=== PATIENT | female | born 1990 | race American Indian/Alaskan Native ===

== ENCOUNTER 2017-07-13 22:47 | Inpatient (IN) | payer SELFPAY ==
[2017-07-14 00:05] LABS: Basophils % (Auto) 0.4 % (0.0-1.8); Eosinophils % (Auto) 3.9 % (0.0-4.3); Hematocrit 38.3 % (30.3-42.9); Mean Corpuscular HGB Conc 34 % (30-34); Mean Corpuscular Hemoglobin 30 pg (28-32); Mean Corpuscular Volume 87 fl (79-97); Platelet Count 319 K/mm3 (140-440); Red Blood Count 4.39 M/mm3 (3.65-5.03); Red Cell Distribution Width 14.2 % (13.2-15.2)
[2017-07-14 00:38] LABS: Anion Gap 18 mmol/L; BUN/Creatinine Ratio 33; Blood Urea Nitrogen 13 mg/dL (7-17); Calcium 9.1 mg/dL (8.4-10.2); Carbon Dioxide 28 mmol/L (22-30); Chloride 98.6 mmol/L (98-107); Glucose 102 mg/dL (65-100); Potassium 3.9 mmol/L (3.6-5.0); Sodium 141 mmol/L (137-145)
[2017-07-14] MEDS ORDERED: KEPPRA 1,000 MG/NS 0.75% 100ML 0 MG/0 ML BAG IV ONE (01:10)
[2017-07-14 07:09] LABS: Bilirubin,Urine NEG (Negative); Blood,Urine NEG (Negative); Ketones,Urine NEG (Negative); Leukocyte Esterase,Urine NEG (Negative); Mucus,Urine 3+ /HPF; Nitrite,Urine NEG (Negative); Protein,Urine <15 mg/dL mg/dL (Negative); Urobilinogen,Urine < 2.0 mg/dL (<2.0)
--- NOTE | 2017-07-14 09:02 | Emergency Department Report ---
ED Chest Pain HPI - General Chief Complaint: Chest Pain Stated Complaint: CP Time Seen by Provider: 07/14/17 08:56 Source: patient Mode of arrival: Ambulatory Limitations: No Limitations - History of Present Illness Initial Comments: Patient complains of substernal chest pain which is somewhat pleuritic associated with shortness of breath for the last 3 days. Patient has not had chest pain of this nature in the past. She's had no recent travel. She denies any history of venous thromboembolism or cardiac problem. She states that her half sister may have had a heart attack but seems to have little detail on this. MD Complaint: chest pain -: Gradual, days(s) Onset: during rest Pain Location: substernal Pain Radiation: none Severity: moderate Quality: tightness Consistency: intermittent Improves With: nothing Worsens With: inspiration (pain is pleuritic) re: dyspnea. denies: nausea, vomting, diaphoresis Other Symptoms: denies: cough, fever, syncope Treatments Prior to Arrival: none Aspirin use within the Past 7 Days: (0) No - Related Data On Oral Contraceptives: No Home Medications Medication Instructions Recorded Confirmed Last Taken Atenolol/Chlorthalidone 1 tab PO Q12H 07/13/17 07/13/17 Unknown AtorvaSTATin 20 mg PO HS 07/13/17 07/13/17 Unknown Losartan Potassium 25 mg PO Q12H 07/13/17 07/13/17 Unknown metFORMIN 1,000 mg PO Q12H 07/13/17 07/13/17 Unknown Allergies Allergy/AdvReac Type Severity Reaction Status Date / Time cefaclor [From [facility]] Allergy Hives Verified 07/14/17 01:32 Penicillins Allergy Itching Verified 07/14/17 01:32 Heart Score - HEART Score History: Moderately suspicious EKG: Non-specific Age: < 45 Risk factors: 1-2 risk factors Troponin: < normal limit HEART Score: 3 - Critical Actions Critical Actions: 0-3 pts:0.9-1.7%risk of adverse cardiac event.Candidate for discharge ED Review of Systems ROS: Stated complaint: CP Other details as noted in HPI Constitutional: denies: chills, fever Eyes: denies: eye pain, eye discharge, vision change ENT: denies: ear pain, throat pain Respiratory: shortness of breath. denies: cough, wheezing Cardiovascular: chest pain. denies: palpitations Endocrine: no symptoms reported Gastrointestinal: denies: abdominal pain, nausea, diarrhea Genitourinary: denies: urgency, dysuria, discharge Musculoskeletal: denies: back pain, joint swelling, arthralgia Skin: denies: rash, lesions Neurological: denies: headache, weakness, paresthesias Psychiatric: denies: anxiety, depression Hematological/Lymphatic: denies: easy bleeding, easy bruising ED Past Medical Hx - Past Medical History Hx Hypertension: Yes Hx Diabetes: Yes Hx Headaches / Migraines: Yes Additional medical history: High cholesterol - Surgical History Hx Cholecystectomy: Yes Additional Surgical History: Tonsilectomy, Adenoidectomy, Surgical . Tubal Ligation - Social History Smoking Status: Never Smoker Substance Use Type: None - Medications Home Medications: Home Medications Medication Instructions Recorded Confirmed Last Taken Type Atenolol/Chlorthalidone 1 tab PO Q12H 07/13/17 07/13/17 Unknown History AtorvaSTATin 20 mg PO HS 07/13/17 07/13/17 Unknown History Losartan Potassium 25 mg PO Q12H 07/13/17 07/13/17 Unknown History metFORMIN 1,000 mg PO Q12H 07/13/17 07/13/17 Unknown History ED Physical Exam - General Limitations: No Limitations General appearance: alert, in no apparent distress, obese - Head Head exam: Present: atraumatic, normocephalic - Eye Eye exam: Present: normal appearance, PERRL, EOMI. Absent: scleral icterus - ENT ENT exam: Present: normal exam, mucous membranes moist - Neck Neck exam: Present: normal inspection. Absent: tenderness, meningismus - Respiratory Respiratory exam: Present: normal lung sounds bilaterally. Absent: respiratory distress - Cardiovascular Cardiovascular Exam: Present: regular rate, normal rhythm. Absent: systolic murmur, diastolic murmur, rubs, gallop - GI/Abdominal GI/Abdominal exam: Present: soft, normal bowel sounds. Absent: distended, tenderness, guarding, rebound, rigid - Extremities Exam Extremities exam: Present: normal inspection, normal capillary refill. Absent: pedal edema, joint swelling, calf tenderness - Back Exam Back exam: Present: normal inspection - Neurological Exam Neurological exam: Present: alert, oriented X3, CN II-XII intact. Absent: motor sensory deficit - Psychiatric Psychiatric exam: Present: normal affect, normal mood - Skin Skin exam: Present: warm, dry, intact, normal color. Absent: rash ED Course Vital Signs 07/13/17 07/14/17 07/14/17 23:36 02:12 06:33 Temperature 98 F 98.0 F Pulse Rate 100 H 80 Respiratory 16 Rate Blood Pressure 125/82 124/87 Blood Pressure [Left] O2 Sat by Pulse 100 100 97 Oximetry 07/14/17 07/14/17 07/14/17 06:45 06:46 07:00 Temperature 97.6 F Pulse Rate 88 91 H 82 Respiratory 17 16 18 Rate Blood Pressure 116/72 111/81 Blood Pressure 122/77 [Left] O2 Sat by Pulse 97 97 96 Oximetry 07/14/17 07/14/17 07/14/17 07:15 07:30 07:45 Temperature Pulse Rate 81 90 77 Respiratory 15 17 16 Rate Blood Pressure 115/83 109/84 108/74 Blood Pressure [Left] O2 Sat by Pulse 98 96 97 Oximetry 07/14/17 07/14/17 07/14/17 08:00 08:15 08:30 Temperature 97.5 F L Pulse Rate 73 69 66 Respiratory 17 16 14 Rate Blood Pressure 110/70 110/76 111/75 Blood Pressure [Left] O2 Sat by Pulse 97 99 100 Oximetry 07/14/17 07/14/17 07/14/17 08:45 09:00 09:15 Temperature Pulse Rate 71 81 82 Respiratory 17 15 16 Rate Blood Pressure 111/76 114/77 111/81 Blood Pressure [Left] O2 Sat by Pulse 98 95 96 Oximetry 07/14/17 07/14/17 07/14/17 09:30 09:42 09:43 Temperature 97.9 F Pulse Rate 85 86 86 Respiratory 16 12 Rate Blood Pressure 112/82 Blood Pressure 112/82 [Left] O2 Sat by Pulse 99 99 Oximetry 07/14/17 07/14/17 07/14/17 09:45 11:00 11:04 Temperature 98.0 F Pulse Rate 85 82 Respiratory 13 16 13 Rate Blood Pressure 112/77 112/77 Blood Pressure 120/84 [Left] O2 Sat by Pulse 99 98 Oximetry 07/14/17 07/14/17 07/14/17 11:15 11:30 11:45 Temperature Pulse Rate 97 H 89 91 H Respiratory 19 17 17 Rate Blood Pressure 136/76 136/76 124/86 Blood Pressure [Left] O2 Sat by Pulse 94 98 98 Oximetry 07/14/17 07/14/17 12:00 12:15 Temperature Pulse Rate 90 85 Respiratory 16 11 L Rate Blood Pressure 127/83 120/74 Blood Pressure [Left] O2 Sat by Pulse 97 97 Oximetry - Reevaluation(s) Reevaluation #1: Patient was found to have a pulmonary embolism with low clot burden on the left area see radiologist's report. She was placed on a standard heparin drip after standard bolus. She was admitted to the hospitalist service is stable condition. 07/14/17 16:24 CICI score - Cici Score Age > 65: (0) No Aspirin use within the Past 7 Days: (0) No 3 or more CAD Risk Factors: (0) No 2 or more Angina events in past 24 hrs: (0) No Known CAD with more than 50% Stenosis: (0) No Elevated Cardiac Markers: (0) No ST Deviation Greater than 0.5mm: (0) No CICI Score: 0 ED Medical Decision Making - Lab Data Result diagrams: 07/14/17 10:37 07/13/17 23:52 Laboratory Results - last 24 hr 07/13/17 07/13/17 07/13/17 23:52 23:52 23:52 WBC 8.0 RBC 4.39 Hgb 13.0 Hct 38.3 MCV 87 MCH 30 MCHC 34 RDW 14.2 Plt Count 319 Lymph % (Auto) 28.2 [place] % (Auto) 5.6 Eos % (Auto) 3.9 Baso % (Auto) 0.4 Lymph # 2.3 [place] # 0.5 Eos # 0.3 Baso # 0.0 Seg Neutrophils % 61.9 Seg Neutrophils # 5.0 Sodium 141 Potassium 3.9 Chloride 98.6 Carbon Dioxide 28 Anion Gap 18 BUN 13 Creatinine 0.4 L Estimated GFR > 60 BUN/Creatinine Ratio 33 Glucose 102 H Calcium 9.1 Troponin T < 0.010 HCG, Qual Negative Urine Color Urine Turbidity Urine pH Ur Specific [place] Urine Protein Urine Glucose (UA) Urine Ketones Urine Blood Urine Nitrite Urine Bilirubin Urine Urobilinogen Ur Leukocyte Esterase Urine WBC (Auto) Urine RBC (Auto) U Epithel Cells (Auto) Urine Mucus 07/14/17 07/14/17 07/14/17 02:17 05:34 06:46 WBC RBC Hgb Hct MCV MCH MCHC RDW Plt Count Lymph % (Auto) [place] % (Auto) Eos % (Auto) Baso % (Auto) Lymph # [place] # Eos # Baso # Seg Neutrophils % Seg Neutrophils # Sodium Potassium Chloride Carbon Dioxide Anion Gap BUN Creatinine Estimated GFR BUN/Creatinine Ratio Glucose Calcium Troponin T < 0.010 < 0.010 HCG, Qual Urine Color Yellow Urine Turbidity Clear Urine pH 5.0 Ur Specific [place] 1.030 Urine Protein <15 mg/dl Urine Glucose (UA) Neg Urine Ketones Neg Urine Blood Neg Urine Nitrite Neg Urine Bilirubin Neg Urine Urobilinogen < 2.0 Ur Leukocyte Esterase Neg Urine WBC (Auto) 2.0 Urine RBC (Auto) 4.0 U Epithel Cells (Auto) 15.0 H Urine Mucus 3+ - EKG Data -: EKG Interpreted by [place] EKG shows normal: sinus rhythm Rate: normal - EKG Data When compared to previous EKG there are: no significant change Interpretation: no acute changes - Radiology Data Radiology results: report reviewed (pulmonary embolism) Critical care attestation.: If time is entered above; I have spent that time in minutes in the direct care of this critically ill patient, excluding procedure time. ED Disposition Clinical Impression: Pulmonary embolism Qualifiers: Pulmonary embolism type: other Chronicity: acute Acute cor pulmonale presence: without acute cor pulmonale Qualified Code(s): I26.99 - Other pulmonary embolism without acute cor pulmonale Disposition: OP ADMIT IP TO THIS HOSP Is pt being admited?: Yes Does the pt Need Aspirin: Yes Condition: Stable Referrals: ALEJANDRO DAVIS MD [Primary Care Provider] - 3-5 Days Time of Disposition: 16:32
[2017-07-14] MEDS ORDERED: ASPIRIN PO ONE (09:37)
[2017-07-14] MEDS ORDERED: NACL ONE (09:42)
--- NOTE | 2017-07-14 10:29 | Cat Scan Report ---
CT CHEST WITH CONTRAST: 07/14/17 09:37:00 CLINICAL: Chest pain TECHNIQUE: PE protocol with volumetric acquisition and 1.25 mm scan reconstructions after the uneventful intravenous injection of 100 cc Omnipaque 350. Consent was obtained prior to the administration of contrast. FINDINGS: Good opacification of the pulmonary arteries and a small burden of left lower lobe subsegmental pulmonary artery thrombus identified. No central thrombus. Normal heart and aorta. Normal lungs and mediastinum. Normal thyroid, trachea and esophagus. The upper abdomen is unremarkable. The bones and soft tissues are normal. IMPRESSION: Positive study for pulmonary embolus with a small burden of thrombus. Verbal report was given to in the emergency department at 10:28 on 07/14/17. MEREDITH MENESES
[2017-07-14] MEDS ORDERED: HEPARIN 10,000 UNITS/10 ML IV ONE (10:33)
[2017-07-14] MEDS: HEPARIN/ 0.45% NACL-25,000 UNIT/500 ML 25,000 UNIT/500 ML BAG IV SCH (10:47)
[2017-07-14 11:02] LABS: Hematocrit 38.1 % (30.3-42.9); Hemoglobin 13.1 gm/dl (10.1-14.3)
[2017-07-14 11:13] LABS: INR 0.99 (0.87-1.13)
[2017-07-14 11:14] LABS: Partial Thromboplastin Time 31.4 Sec. (24.2-36.6)
--- NOTE | 2017-07-14 19:57 | History and Physical Report ---
History of Present Illness Date of examination: 07/14/17 Date of admission: 07/14/17 16:44 Chief complaint: CC:Chest pain and Sob for 1 week. History of present illness: History of Present Illness 26 y/o AAF with pmh of HtN T2DM and HLD complains of substernal chest pain which is somewhat pleuritic associated with shortness of breath for the last 7 days. Also SOB on minimal exertion for 1 week. Travelled to [place] and back [facility]. She denies any history of venous thromboembolism or cardiac problem. She states that her half sister may have had a heart attack but seems to have little detail on this.Pain is about 8/10 dull in character.No diaphoresis or palpitations.Exacerbating factor is exertion.Relieved by rest. Past Medical History Hx Hypertension: Yes Hx Diabetes: Yes Hx Headaches / Migraines: Yes Additional medical history: High cholesterol Surgical History Hx Cholecystectomy: Yes Additional Surgical History: Tonsilectomy, Adenoidectomy, Surgical . Tubal Ligation Social History Smoking Status: Never Smoker Substance Use Type: None Medications Home Medications: Home Medications Medication Instructions Recorded Confirmed Last Taken Type Atenolol/Chlorthalidone 1 tab PO Q12H 07/13/17 07/13/17 Unknown History AtorvaSTATin 20 mg PO HS 07/13/17 07/13/17 Unknown History Losartan Potassium 25 mg PO Q12H 07/13/17 07/13/17 Unknown History metFORMIN 1,000 mg PO Q12H 07/13/17 07/13/17 Unknown History Review of Systems Stated complaint: CP Other details as noted in HPI Constitutional: denies: chills, fever Eyes: denies: eye pain, eye discharge, vision change ENT: denies: ear pain, throat pain Respiratory: shortness of breath. denies: cough, wheezing Cardiovascular: chest pain. denies: palpitations Endocrine: no symptoms reported Gastrointestinal: denies: abdominal pain, nausea, diarrhea Genitourinary: denies: urgency, dysuria, discharge Musculoskeletal: denies: back pain, joint swelling, arthralgia Skin: denies: rash, lesions Neurological: denies: headache, weakness, paresthesias Psychiatric: denies: anxiety, depression Hematological/Lymphatic: denies: easy bleeding, easy bruising Medications and Allergies Allergies Allergy/AdvReac Type Severity Reaction Status Date / Time cefaclor [[facility]] Allergy Hives Verified 07/14/17 01:32 Penicillins Allergy Itching Verified 07/14/17 01:32 Home Medications Medication Instructions Recorded Confirmed Last Taken Type Atenolol/Chlorthalidone 1 tab PO Q12H 07/13/17 07/13/17 Unknown History AtorvaSTATin 20 mg PO HS 07/13/17 07/13/17 Unknown History Losartan Potassium 25 mg PO Q12H 07/13/17 07/13/17 Unknown History metFORMIN 1,000 mg PO Q12H 07/13/17 07/13/17 Unknown History Active Meds: Active Medications Heparin Sodium/Sodium Chloride (Heparin/ 0.45% Nacl-25,000 Unit/500 Ml) 25,000 unit in 500 mls @ 27 mls/hr IV TITR [place]; 1,350 UNITS/HR PRN Reason: Protocol Last Titration: 07/14/17 17:33 Dose: 1,450 units/hr, 29 mls/hr Exam - Physical Exam Narrative exam: Lying comfortably - Constitutional Vitals: Temp Pulse Resp BP Pulse Ox 98.0 F 92 H 17 110/75 98 07/14/17 15:00 07/14/17 16:45 07/14/17 16:45 07/14/17 16:45 07/14/17 16:45 General appearance: Present: mild distress, well-nourished - EENT Eyes: Present: PERRL ENT: hearing intact, clear oral mucosa - Neck Neck: Present: supple, normal ROM - Respiratory Respiratory effort: normal Respiratory: bilateral: CTA - Cardiovascular Heart rate: 98 Rhythm: regular Heart Sounds: Present: S1 & S2. Absent: rub, click - Extremities Extremities: no ischemia, pulses intact, pulses symmetrical, No edema Peripheral Pulses: within normal limits - Abdominal General gastrointestinal: Present: soft, non-tender, non-distended, normal bowel sounds Female genitourinary: Present: normal - Integumentary Integumentary: Present: clear, warm, dry - Musculoskeletal Musculoskeletal: gait normal, strength equal bilaterally - Psychiatric Psychiatric: appropriate mood/affect, intact judgment & insight - Neurologic Neurologic: CNII-XII intact, moves all extremities - Allied Health Allied health notes reviewed: nursing, case management Results - Labs CBC & Chem 7: 07/15/17 04:57 07/13/17 23:52 Labs: Laboratory Last Values WBC 8.0 K/mm3 (4.5-11.0) 07/13/17 23:52 RBC 4.39 M/mm3 (3.65-5.03) 07/13/17 23:52 Hgb 13.1 gm/dl (10.1-14.3) 07/14/17 10:37 Hct 38.1 % (30.3-42.9) 07/14/17 10:37 MCV 87 fl (79-97) 07/13/17 23:52 MCH 30 pg (28-32) 07/13/17 23:52 MCHC 34 % (30-34) 07/13/17 23:52 RDW 14.2 % (13.2-15.2) 07/13/17 23:52 Plt Count 295 K/mm3 (140-440) 07/14/17 10:37 Lymph % (Auto) 28.2 % (13.4-35.0) 07/13/17 23:52 [place] % (Auto) 5.6 % (0.0-7.3) 07/13/17 23:52 Eos % (Auto) 3.9 % (0.0-4.3) 07/13/17 23:52 Baso % (Auto) 0.4 % (0.0-1.8) 07/13/17 23:52 Lymph # 2.3 K/mm3 (1.2-5.4) 07/13/17 23:52 [place] # 0.5 K/mm3 (0.0-0.8) 07/13/17 23:52 Eos # 0.3 K/mm3 (0.0-0.4) 07/13/17 23:52 Baso # 0.0 K/mm3 (0.0-0.1) 07/13/17 23:52 Seg Neutrophils % 61.9 % (40.0-70.0) 07/13/17 23:52 Seg Neutrophils # 5.0 K/mm3 (1.8-7.7) 07/13/17 23:52 PT 13.6 Sec. (12.2-14.9) 07/14/17 10:37 INR 0.99 (0.87-1.13) 07/14/17 10:37 APTT 31.4 Sec. (24.2-36.6) 07/14/17 10:37 Heparin Anti-Xa Level 0.27 U.I./ml (0.3-0.7) L 07/14/17 16:25 Sodium 141 mmol/L (137-145) 07/13/17 23:52 Potassium 3.9 mmol/L (3.6-5.0) 07/13/17 23:52 Chloride 98.6 mmol/L (98-107) 07/13/17 23:52 Carbon Dioxide 28 mmol/L (22-30) 07/13/17 23:52 Anion Gap 18 mmol/L 07/13/17 23:52 BUN 13 mg/dL (7-17) 07/13/17 23:52 Creatinine 0.4 mg/dL (0.7-1.2) L 07/13/17 23:52 Estimated GFR > 60 ml/min 07/13/17 23:52 BUN/Creatinine Ratio 33 % 07/13/17 23:52 Glucose 102 mg/dL (65-100) H 07/13/17 23:52 POC Glucose 114 (70-105) H 07/14/17 16:50 Calcium 9.1 mg/dL (8.4-10.2) 07/13/17 23:52 Troponin T < 0.010 ng/mL (0.00-0.029) 07/14/17 05:34 HCG, Qual Negative (Negative) 07/13/17 23:52 Urine Color Yellow (Yellow) 07/14/17 06:46 Urine Turbidity Clear (Clear) 07/14/17 06:46 Urine pH 5.0 (5.0-7.0) 07/14/17 06:46 Ur Specific [place] 1.030 (1.003-1.030) 07/14/17 06:46 Urine Protein <15 mg/dl mg/dL (Negative) 07/14/17 06:46 Urine Glucose (UA) Neg mg/dL (Negative) 07/14/17 06:46 Urine Ketones Neg mg/dL (Negative) 07/14/17 06:46 Urine Blood Neg (Negative) 07/14/17 06:46 Urine Nitrite Neg (Negative) 07/14/17 06:46 Urine Bilirubin Neg (Negative) 07/14/17 06:46 Urine Urobilinogen < 2.0 mg/dL (<2.0) 07/14/17 06:46 Ur Leukocyte Esterase Neg (Negative) 07/14/17 06:46 Urine WBC (Auto) 2.0 /HPF (0.0-6.0) 07/14/17 06:46 Urine RBC (Auto) 4.0 /HPF (0.0-6.0) 07/14/17 06:46 U Epithel Cells (Auto) 15.0 /HPF (0-13.0) H 07/14/17 06:46 Urine Mucus 3+ /HPF 07/14/17 06:46 - Imaging and Cardiology EKG: report reviewed Chest x-ray: report reviewed CT scan - chest: report reviewed (PE present) Assessment and Plan Advance Directives: Yes (Full code) VTE prophylaxis?: Chemical Plan of care discussed with patient/family: Yes - Patient Problems (1) Acute pulmonary embolism Current Visit: Yes Status: Acute Qualifiers: Pulmonary embolism type: other Acute cor pulmonale presence: without acute cor pulmonale Qualified Code(s): I26.99 - Other pulmonary embolism without acute cor pulmonale Plan to address problem: No need for IR/EKOS(Catheter assisted thrombolysis treatment) Patient initiated on IV Heparin drip and Eliquis.Patient maybe discharged on Eliquis .Free coupons for Eliquis available.Alternate treatment is coumadin..Will discuss with Team 1. (2) Chest pain in adult Current Visit: Yes Status: Acute Plan to address problem: Serial cardiac enzymes and Lexiscan ordered (3) HTN (hypertension) Current Visit: Yes Status: Chronic Qualifiers: Hypertension type: essential hypertension Qualified Code(s): I10 - Essential (primary) hypertension Plan to address problem: Cont antihypertensives (4) HLD (hyperlipidemia) Current Visit: Yes Status: Chronic Qualifiers: Hyperlipidemia type: mixed hyperlipidemia Qualified Code(s): E78.2 - Mixed hyperlipidemia Plan to address problem: Cont statins (5) T2DM (type 2 diabetes mellitus) Current Visit: Yes Status: Chronic Qualifiers: Diabetes mellitus complication status: without complication Diabetes mellitus halfway insulin use: without halfway use Qualified Code(s): E11.9 - Type 2 diabetes mellitus without complications Plan to address problem: Cont Metformin and coverage (6) DVT prophylaxis Current Visit: Yes Status: Acute Plan to address problem: On Iv Heparin
[2017-07-14] MEDS ORDERED: CHLORTHALIDONE PO SCH (20:00)
[2017-07-14] MEDS ORDERED: NON-FORMULARY (Losartan Potassium 100 MG) PO SCH (20:00)
[2017-07-14] MEDS ORDERED: ATENOLOL PO SCH (20:00)
[2017-07-14] MEDS ORDERED: NON-FORMULARY (Metformin 1,000 MG) PO SCH (20:00)
[2017-07-14] MEDS ORDERED: ZOFRAN IV PRN (21:04)
[2017-07-14] MEDS ORDERED: TYLENOL PO PRN (21:04)
[2017-07-14] MEDS ORDERED: AMBIEN PO PRN (21:04)
[2017-07-14] MEDS ORDERED: MILK OF MAGNESIA PO PRN (21:04)
[2017-07-14] MEDS ORDERED: MORPHINE IV PRN (21:04)
[2017-07-14] MEDS ORDERED: PERCOCET 5/325 PO PRN (21:04)
[2017-07-14] MEDS ORDERED: DULCOLAX PR PRN (21:04)
[2017-07-14] MEDS ORDERED: NON-FORMULARY (Atorvastatin 20 MG) PO SCH (22:00)
[2017-07-14] MEDS: PEPCID IV SCH (22:02)
[2017-07-14] MEDS: ELIQUIS PO SCH (22:03)
[2017-07-14] MEDS: COZAAR PO SCH (22:04)
[2017-07-14] MEDS: GLUCOPHAGE PO SCH (22:05)
[2017-07-14] MEDS: TENORMIN PO SCH (22:05)
[2017-07-14] MEDS: THALITONE PO SCH (22:05)
[2017-07-14] MEDS: NOVOLOG SUB-Q SCH (22:05)
[2017-07-14] MEDS: NACL 0.9% 1000 ML 1,000 ML IV SCH (23:59)
[2017-07-15 05:28] LABS: Basophils % (Auto) 0.9 % (0.0-1.8); Eosinophils % (Auto) 3.3 % (0.0-4.3); Hematocrit 37.3 % (30.3-42.9); Hemoglobin 12.8 gm/dl (10.1-14.3); Mean Corpuscular HGB Conc 34 % (30-34); Mean Corpuscular Hemoglobin 31 pg (28-32); Mean Corpuscular Volume 89 fl (79-97); Platelet Count 293 K/mm3 (140-440); Red Cell Distribution Width 14.2 % (13.2-15.2); White Blood Count 6.6 K/mm3 (4.5-11.0)
[2017-07-15 06:49] LABS: Alanine Aminotransferase 12 units/L (7-56); Albumin 3.6 g/dL (3.9-5); Albumin/Globulin Ratio 1.2 %; Alkaline Phosphatase 43 units/L (35-129); BUN/Creatinine Ratio 35; Blood Urea Nitrogen 14 mg/dL (7-17); Calcium 8.8 mg/dL (8.4-10.2); Carbon Dioxide 24 mmol/L (22-30); Glucose 74 mg/dL (65-100); Total Protein 6.7 g/dL (6.3-8.2)
[2017-07-15 06:50] LABS: Anion Gap 21 mmol/L; Chloride 99.9 mmol/L (98-107); Potassium 3.8 mmol/L (3.6-5.0); Sodium 141 mmol/L (137-145)
[2017-07-15] MEDS ORDERED: LEXISCAN IV ONE ×2 (08:14→08:39)
[2017-07-15] MEDS: NOVOLOG SUB-Q SCH ×4 (09:29→21:52)
[2017-07-15] MEDS: GLUCOPHAGE PO SCH ×2 (09:30→18:35)
--- NOTE | 2017-07-15 11:30 | Progress Note ---
Assessment and Plan (1) Acute pulmonary embolism No need for IR/EKOS(Catheter assisted thrombolysis treatment) Patient initiated on IV Heparin drip and Eliquis. Patient maybe discharged on Eliquis. Free coupons for Eliquis available. Alternate treatment is coumadin. (2) Chest pain in adult Current Visit: Yes Status: Acute. Likely from Pul infaction given pt's age of 26 and h/o PE Plan to address problem: Serial cardiac enzymes and Lexiscan ordered (3) HTN (hypertension) Cont antihypertensives (4) HLD (hyperlipidemia) Cont statins (5) T2DM (type 2 diabetes mellitus) Plan to address problem: Cont Metformin and SSIvcoverage (6)Possible PID Pt had lower abdominal pain and vaginal discharge. Commence pt on Flagyl, Levaquin. Consulted Gyne for pelvis an cervical culture (7) DVT prophylaxis Current Visit: Yes Status: Acute Plan to address problem: On Iv Heparin Subjective Date of service: 07/15/17 Principal diagnosis: Acute PE, chest pain, Interval history: Occasional shortness of breath. Had vaginal discharged and lower abdominal pain. No fever Objective - Constitutional Vitals: Vital Signs - 12hr 07/14/17 07/15/17 07/15/17 23:37 04:54 07:41 Temperature 98.2 F 98.3 F 97.7 F Pulse Rate 83 90 77 Respiratory 20 20 18 Rate Blood Pressure 115/82 108/67 120/86 Blood Pressure [Left] O2 Sat by Pulse 95 96 100 Oximetry 07/15/17 08:58 Temperature Pulse Rate 77 Respiratory 16 Rate Blood Pressure Blood Pressure 118/85 [Left] O2 Sat by Pulse 100 Oximetry General appearance: Present: no acute distress, well-nourished - EENT Eyes: PERRL, EOM intact - Neck Neck: supple, normal ROM - Respiratory Respiratory effort: normal Respiratory: bilateral: CTA - Cardiovascular Rhythm: regular Heart Sounds: Present: S1 & S2. Absent: gallop, rub Extremities: pulses intact, No edema, normal color, Full ROM - Gastrointestinal General gastrointestinal: Present: soft, non-tender, non-distended, normal bowel sounds - Integumentary Integumentary: clear, warm, dry - Musculoskeletal Musculoskeletal: 1, strength equal bilaterally - Neurologic Neurologic: moves all extremities - Psychiatric Psychiatric: appropriate mood/affect, intact judgment & insight, memory intact - Labs CBC & Chem 7: 07/15/17 04:57 07/15/17 04:57 Labs: Abnormal lab results 07/14/17 07/14/17 07/14/17 Range/Units 16:25 16:50 21:53 Lymph % (Auto) (13.4-35.0) % Heparin Anti-Xa Level 0.27 L (0.3-0.7) U.I./ml Creatinine (0.7-1.2) mg/dL POC Glucose 114 H 106 H (70-105) Albumin (3.9-5) g/dL 07/14/17 07/15/17 07/15/17 Range/Units 22:45 04:57 04:57 Lymph % (Auto) 36.8 H (13.4-35.0) % Heparin Anti-Xa Level > 2.00 H (0.3-0.7) U.I./ml Creatinine 0.4 L (0.7-1.2) mg/dL POC Glucose (70-105) Albumin 3.6 L (3.9-5) g/dL 07/15/17 Range/Units 08:39 Lymph % (Auto) (13.4-35.0) % Heparin Anti-Xa Level 1.70 H (0.3-0.7) U.I./ml Creatinine (0.7-1.2) mg/dL POC Glucose (70-105) Albumin (3.9-5) g/dL
[2017-07-15] MEDS ORDERED: UNASYN/NS 3 GM/100 ML 3 GM/100 ML BAG IV SCH (13:00)
[2017-07-15] MEDS: NACL 0.9% 1000 ML 1,000 ML IV SCH (13:08)
[2017-07-15] MEDS: HEPARIN/ 0.45% NACL-25,000 UNIT/500 ML 25,000 UNIT/500 ML BAG IV SCH (13:09)
[2017-07-15] MEDS: PEPCID IV SCH ×2 (13:19→21:51)
[2017-07-15] MEDS: ELIQUIS PO SCH ×2 (13:20→21:52)
[2017-07-15] MEDS: COZAAR PO SCH ×2 (13:55→21:53)
[2017-07-15] MEDS: THALITONE PO SCH (13:56)
[2017-07-15] MEDS ORDERED: LEVAQUIN 750MG/150ML 750 MG/150 ML BAG IV SCH (14:00)
[2017-07-15] MEDS ORDERED: TENORMIN PO SCH (15:15)
[2017-07-15] MEDS: TENORMIN PO SCH ×2 (15:16→21:54)
[2017-07-15] MEDS: FLAGYL 500 MG/100 ML 500 MG/100 ML BAG IV SCH ×2 (15:56→21:51)
[2017-07-15] MEDS ORDERED: TENORMIN PO ONE (17:39)
[2017-07-15] MEDS: LEVAQUIN 750MG/150ML 750 MG/150 ML BAG IV SCH (19:33)
--- NOTE | 2017-07-15 19:40 | Ultrasound Report ---
FINAL REPORT PROCEDURE: US TRANSVAGINAL and transabdominal TECHNIQUE: Real-time transabdominal sonography in multiple planes of the pelvis was performed. The pelvic structures were not optimally visualized. Transvaginal sonography was then performed to better evaluate the structures and/or abnormalities described below with image documentation. Grayscale, color flow Doppler imaging and velocity spectral waveform analysis of the ovaries was employed (duplex imaging). CPT 04696, 86848, and 25[address] HISTORY: pelvic pain COMPARISON: No prior studies are available for comparison. FINDINGS: UTERUS Size: 11.4 x 3.7 x 5.3 cm. Endometrial thickness: 8 mm. Orientation: anteverted. Cervix: Normal. Fibroids/masses: None. RIGHT Ovary: 4.1 x 3.0 x 2.6 cm. Appearance: 3.3 centimeter cyst is present. Doppler images: Normal spectral waveforms and color flow. The systolic and diastolic velocities are within normal limits. LEFT Ovary: 2.4 x 1.9 x 1.1 cm. Appearance: Normal. Doppler images: Normal spectral waveforms and color flow. The systolic and diastolic velocities are within normal limits. Pelvic fluid: None. Other: None. IMPRESSION: 3.3 centimeter right ovarian cyst is present
--- NOTE | 2017-07-15 19:40 | Ultrasound Report ---
FINAL REPORT PROCEDURE: US TRANSVAGINAL and transabdominal TECHNIQUE: Real-time transabdominal sonography in multiple planes of the pelvis was performed. The pelvic structures were not optimally visualized. Transvaginal sonography was then performed to better evaluate the structures and/or abnormalities described below with image documentation. Grayscale, color flow Doppler imaging and velocity spectral waveform analysis of the ovaries was employed (duplex imaging). CPT 19669, 34106, and 39439 HISTORY: pelvic pain COMPARISON: No prior studies are available for comparison. FINDINGS: UTERUS Size: 11.4 x 3.7 x 5.3 cm. Endometrial thickness: 8 mm. Orientation: anteverted. Cervix: Normal. Fibroids/masses: None. RIGHT Ovary: 4.1 x 3.0 x 2.6 cm. Appearance: 3.3 centimeter cyst is present. Doppler images: Normal spectral waveforms and color flow. The systolic and diastolic velocities are within normal limits. LEFT Ovary: 2.4 x 1.9 x 1.1 cm. Appearance: Normal. Doppler images: Normal spectral waveforms and color flow. The systolic and diastolic velocities are within normal limits. Pelvic fluid: None. Other: None. IMPRESSION: 3.3 centimeter right ovarian cyst is present PROCEDURE: TECHNIQUE: HISTORY: COMPARISON: FINDINGS: IMPRESSION:
[2017-07-16] MEDS: NACL 0.9% 1000 ML 1,000 ML IV SCH (04:35)
[2017-07-16] MEDS: FLAGYL 500 MG/100 ML 500 MG/100 ML BAG IV SCH ×4 (05:10→22:12)
[2017-07-16 07:12] LABS: Hematocrit 36.6 % (30.3-42.9); Hemoglobin 12.6 gm/dl (10.1-14.3)
[2017-07-16] MEDS: GLUCOPHAGE PO SCH ×2 (08:02→19:11)
[2017-07-16] MEDS: COZAAR PO SCH ×2 (08:30→22:14)
[2017-07-16] MEDS: NOVOLOG SUB-Q SCH ×4 (09:02→23:36)
[2017-07-16] MEDS: ELIQUIS PO SCH ×2 (09:02→22:13)
[2017-07-16] MEDS: TENORMIN PO SCH ×2 (09:03→22:15)
--- NOTE | 2017-07-16 09:36 | Consultation ---
History of Present Illness Consult date: 07/16/17 Requesting physician: VIN GUERIN Reason for consult: other (Patient wanted exam for pelvic pain and vaginal discharge, he mentioned r/o PID) History of present illness: 26 yo admitted with PE and SOB I told Dr Guerin that this problem does not need a hospital consult and can be safely evaluated in our office once the patient is discharged on anticoagulation. She does not have PID based on normal WBC and afebrile. Gonorrhea and Chlamydia cultures can be ordered on a urine sample and RPR, HIV and HepB are blood tests that may be ordered. Please give patient our office number to make an appointment after discharge. Medications and Allergies Allergies Allergy/AdvReac Type Severity Reaction Status Date / Time cefaclor [From [facility]] Allergy Hives Verified 07/14/17 01:32 Penicillins Allergy Itching Verified 07/14/17 01:32 Home Medications Medication Instructions Recorded Confirmed Last Taken Type Atenolol/Chlorthalidone 0.5 tab PO Q12H 07/13/17 07/15/17 Unknown History AtorvaSTATin 20 mg PO HS 07/13/17 07/13/17 Unknown History Losartan Potassium 25 mg PO Q12H 07/13/17 07/13/17 Unknown History metFORMIN 1,000 mg PO Q12H 07/13/17 07/13/17 Unknown History Active Meds: Active Medications Acetaminophen (Tylenol) 650 mg PO Q4H PRN PRN Reason: Pain MILD(1-3)/Fever >100.5/[place] Apixaban (Eliquis) 10 mg PO Q12HR [place] PRN Reason: Protocol Stop: 07/21/17 23:59 Last Admin: 07/15/17 21:52 Dose: 10 mg Atenolol (Tenormin) 25 mg PO BID [facility] Last Admin: 07/15/17 21:54 Dose: 25 mg Atorvastatin Calcium (Lipitor) 20 mg PO QHS [facility] Last Admin: 07/15/17 21:52 Dose: 20 mg Bisacodyl (Dulcolax) 10 mg MN QDAY PRN PRN Reason: Constipation unrelieved by MOM Famotidine (Pepcid) 20 mg IV BID [facility] Last Admin: 07/15/17 21:51 Dose: 20 mg Heparin Sodium/Sodium Chloride (Heparin/ 0.45% Nacl-25,000 Unit/500 Ml) 25,000 unit in 500 mls @ 27 mls/hr IV TITR [place]; 1,350 UNITS/HR PRN Reason: Protocol Last Titration: 07/16/17 09:01 Dose: 650 units/hr, 13 mls/hr Sodium Chloride (Nacl 0.9% 1000 Ml) 1,000 mls @ 75 mls/hr IV DIRECT [facility] Last Admin: 07/16/17 04:35 Dose: 75 mls/hr Metronidazole (Flagyl 500 Mg/100 Ml) 500 mg in 100 mls @ 100 mls/hr IV Q8H [facility] Last Admin: 07/16/17 05:10 Dose: 100 mls/hr Levofloxacin/Dextrose (Levaquin 750mg/150ml) 750 mg in 150 mls @ 100 mls/hr IV Q24H [facility] PRN Reason: Protocol Last Admin: 07/15/17 19:33 Dose: 100 mls/hr Insulin Aspart (Novolog) 0 units SUB-Q ACHS [facility] PRN Reason: Protocol Last Admin: 07/15/17 21:52 Dose: Not Given Losartan Potassium (Cozaar) 25 mg PO BID [facility] Last Admin: 07/15/17 21:53 Dose: Not Given Magnesium Hydroxide (Milk Of Magnesia) 30 ml PO Q4H PRN PRN Reason: Constipation Metformin HCl (Glucophage) 1,000 mg PO BIDDIAB [facility] Last Admin: 07/15/17 18:35 Dose: Not Given Morphine Sulfate (Morphine) 2 mg IV Q4H PRN PRN Reason: Pain, Moderate (4-6) Ondansetron HCl (Zofran) 4 mg IV Q8H PRN PRN Reason: N/V unrelieved by Reglan Oxycodone/Acetaminophen (Percocet 5/325) 1 tab PO Q6H PRN PRN Reason: Pain, Moderate (4-6) Zolpidem Tartrate (Ambien) 5 mg PO QHS PRN PRN Reason: Insomnia - Vital Signs Vital signs: Vital Signs Temp Pulse BP Pulse Ox 98 F 100 H 125/82 100 07/13/17 23:36 07/13/17 23:36 07/13/17 23:36 07/13/17 23:36 Temp Pulse Resp BP Pulse Ox 98.3 F 74 18 107/69 99 07/16/17 06:05 07/16/17 06:05 07/16/17 06:05 07/16/17 06:05 07/16/17 06:05 Results Result Diagrams: 07/16/17 06:50 07/15/17 04:57 Abnormal lab results 07/15/17 07/15/17 07/16/17 Range/Units 15:25 18:36 06:51 Heparin Anti-Xa Level 1.93 H > 2.00 H (0.3-0.7) U.I./ml POC Glucose 111 H (70-105) All other labs normal. Ultrasound: report reviewed (report not read until 07/16/2017 and is completely normal except uterine length is somewhat increased) Assessment and Plan - Patient Problems (1) Acute pulmonary embolism Current Visit: Yes Status: Acute Qualifiers: Pulmonary embolism type: other Acute cor pulmonale presence: without acute cor pulmonale Qualified Code(s): I26.99 - Other pulmonary embolism without acute cor pulmonale Plan to address problem: handle by primary team. otherwise: Gonorrhea and Chlamydia cultures can be ordered on a urine sample and RPR, HIV and HepB are blood tests that may be ordered. (2) Chest pain in adult Current Visit: Yes Status: Acute Plan to address problem: handle by primary team
[2017-07-16] MEDS: PEPCID IV SCH ×2 (11:04→22:13)
[2017-07-16] MEDS ORDERED: LEXISCAN IV ONE (11:21)
[2017-07-16] MEDS ORDERED: LEXISCAN IV NR (11:25)
[2017-07-16] MEDS: LEVAQUIN 750MG/150ML 750 MG/150 ML BAG IV SCH (19:11)
--- NOTE | 2017-07-16 20:32 | Progress Note ---
Assessment and Plan (1) Acute pulmonary embolism No need for IR/EKOS(Catheter assisted thrombolysis treatment) Patient initiated on IV Heparin drip and Eliquis. Patient maybe discharged on Eliquis. Free coupons for Eliquis available. Alternate treatment is coumadin. (2) Chest pain in adult Current Visit: Yes Status: Acute. Likely from Pul infarction given pt's age of 26 and h/o PE Plan to address problem: Serial cardiac enzymes (3) HTN (hypertension) Cont antihypertensives (4) HLD (hyperlipidemia) Cont statins (5) T2DM (type 2 diabetes mellitus) Plan to address problem: Cont Metformin and SSI coverage (6)Possible PID Pt had lower abdominal pain and vaginal discharge. Gyne consult noted. Still believe that an inpt Gyne consult was indicated in a pt who has has lower abdominal pain and vaginal discharged and had repeated requested pelvic exam despite normal wbc. Besides pt's satisfaction, a Cervical culture may still be indicated unless the expert thinks otherwise. will advise pt to f/ u on out pt if sx perisist. continue on Flagyl, Levaquin. (7) DVT prophylaxis Current Visit: Yes Status: Acute Plan to address problem: On Iv Heparin Subjective Date of service: 07/16/17 Principal diagnosis: Acute PE, chest pain, Interval history: Occasional shortness of breath. vaginal discharged and lower abdominal pain imporved. No fever Objective - Constitutional Vitals: Vital Signs - 12hr 07/16/17 07/16/17 16:44 19:53 Temperature 98.3 F Pulse Rate 95 H Respiratory 18 Rate Blood Pressure 128/88 114/68 O2 Sat by Pulse 97 Oximetry General appearance: Present: no acute distress, well-nourished - EENT Eyes: PERRL, EOM intact Ears: bilateral: normal - Neck Neck: supple, normal ROM - Respiratory Respiratory effort: normal Respiratory: bilateral: CTA - Cardiovascular Rhythm: regular Heart Sounds: Present: S1 & S2. Absent: gallop, rub Extremities: pulses intact, No edema, normal color, Full ROM - Gastrointestinal General gastrointestinal: Present: soft, non-tender, non-distended, normal bowel sounds - Integumentary Integumentary: clear, warm, dry - Musculoskeletal Musculoskeletal: 1, strength equal bilaterally - Neurologic Neurologic: moves all extremities - Psychiatric Psychiatric: memory intact, appropriate mood/affect, intact judgment & insight - Labs CBC & Chem 7: 12/11/17 06:50 07/15/17 04:57 Labs: Abnormal lab results 07/16/17 07/16/17 Range/Units 06:51 16:51 Heparin Anti-Xa Level > 2.00 H (0.3-0.7) U.I./ml POC Glucose 114 H (70-105)
[2017-07-17] MEDS: NACL 0.9% 1000 ML 1,000 ML IV SCH (01:50)
--- NOTE | 2017-07-17 02:33 | Treadmill Report ---
REFERRING PHYSICIAN: Dr. Lianne Mccarthy. DESCRIPTION OF PROCEDURE: The patient received 10 mCi of technetium 99m Myoview intravenously under resting conditions. Resting myocardial perfusion scan was done. Subsequently, the patient underwent Lexiscan stress test as per the protocol. During Lexiscan stress test, the patient received 28 mCi of technetium 99m Myoview intravenously. After 30-60 minutes, post stress images were done. Computerized reconstruction images were performed for analysis. The post-stress images revealed uniform distribution of the radiopharmaceutical in the left ventricular myocardium. The post-stress images revealed uniform distribution of the radiopharmaceutical in the left ventricular myocardium. Gated study did not reveal any wall motion abnormality. The left ventricular ejection fraction was normal and was calculated to be 65%. The resting images were normal. CONCLUSIONS: 1. No perfusion abnormality of the left ventricular myocardium was demonstrated in the resting as well as stress images obtained after the patient underwent Lexiscan stress test. 2. No wall motion abnormality. 3. Normal left ventricular ejection fraction of 65%. JOB# [id number] [facility]
[2017-07-17] MEDS: FLAGYL 500 MG/100 ML 500 MG/100 ML BAG IV SCH (06:22)
[2017-07-17] MEDS: NOVOLOG SUB-Q SCH (07:48)
[2017-07-17] MEDS: GLUCOPHAGE PO SCH (08:58)
[2017-07-17] MEDS: ELIQUIS PO SCH (08:59)
[2017-07-17] MEDS: COZAAR PO SCH (08:59)
[2017-07-17] MEDS: TENORMIN PO SCH (08:59)
[2017-07-17 09:00] VITALS: BP 128/96
[2017-07-17] MEDS: PEPCID IV SCH (09:00)
--- NOTE | 2017-07-17 10:25 | Discharge Summary ---
Providers - Providers Date of Admission: 07/14/17 16:44 Attending physician: ALFRED TRACY MD 07/15/17 11:38 Consult to Physician [CONS] Routine Consulting Provider: ASHLEY URIBE Reason For Exam: possible PID Place consult to:: Dr. Uribe Notified:: Adelia VALENTIN Phone number called:: Was contact made?: Yes If yes, spoke with:: [facility] service Time called:: 12:07 Primary care physician: ALEJANDRO DAVIS Hospitalization Reason for admission: Pulmonary embolisim Condition: Stable Hospital course: 26 y/o AAF with pmh of HtN T2DM and HLD complains of substernal chest pain which is somewhat pleuritic associated with shortness of breath for the last 7 days. Also SOB on minimal exertion for 1 week. Travelled to [place] and back around [facility]. She denies any history of venous thromboembolism or cardiac problem. She states that her half sister may have had a heart attack but seems to have little detail on this.Pain is about 8/10 dull in character.No diaphoresis or palpitations.Exacerbating factor is exertion.Relieved by rest. she was noted to have Pulmonary embolism but no dvt. she was started on heparin drip, she denied prior epsiode and also no use of OCP drugs. she was seen by BRICK POINTER for possible PID with recommendation to follow outpatient and G/C cultures done which will be follow up outaptient. Also patient was started on abx, education about side effect and risk of anticoagulation was discussed in detail and she verbalized understanding. she was clinically stable on discharge and discharged on Eliquis. (1) Acute pulmonary embolism (2) Chest pain in adult SECONDARY TO PE (3) HTN (hypertension) (4) HLD (hyperlipidemia) (5) T2DM (type 2 diabetes mellitus) (6)PID Disposition: - TO HOME OR SELFCARE Time spent for discharge: 35 MINS Core Measure Documentation - Palliative Care Palliative Care/ Comfort Measures: Not Applicable - Core Measures Any of the following diagnoses?: DVT/PE - VTE Discharge Requirements Deep Vein Thrombosis/Pulmonary Embolism Present on Admission: Yes Has pt received <5 days of overlap therapy or INR<2.0: Yes (criteria for overlap therapy at discharge: on overlap therapy for less than 5 days or INR<2.0 ) Anticoagulant overlap therapy prescribed at discharge: Yes Exam - Physical Exam Narrative exam: General appearance: Present: no acute distress, well-nourished - EENT Eyes: PERRL, EOM intact - Neck Neck: supple, normal ROM - Respiratory Respiratory effort: normal Respiratory: bilateral: CTA - Cardiovascular Rhythm: regular Heart Sounds: Present: S1 & S2. Absent: gallop, rub Extremities: pulses intact, No edema, normal color, Full ROM - Gastrointestinal General gastrointestinal: Present: soft, non-tender, non-distended, normal bowel sounds - Integumentary Integumentary: clear, warm, dry - Musculoskeletal Musculoskeletal: 1, strength equal bilaterally - Neurologic Neurologic: moves all extremities - Psychiatric Psychiatric: appropriate mood/affect, intact judgment & insight, memory intact - Constitutional Vitals: Temp Pulse Resp BP Pulse Ox 97.9 F 82 20 128/96 98 07/17/17 08:51 07/17/17 08:59 07/17/17 08:51 07/17/17 08:59 07/17/17 08:51 Plan Activity: advance as tolerated, fall precautions Diet: regular Special Instructions: record daily BP diary, smoking cessation Follow up with: ALEJANDRO DAVIS MD [Primary Care Provider] - 3-5 Days ASHLEY URIBE MD [Staff Physician] - 7 Days Prescriptions: Apixaban [Eliquis] 10 mg PO Q12HR #14 tablet Apixaban [Eliquis] 5 mg PO BID 30 Days tablet Levofloxacin [Levaquin TAB] 500 mg PO QDAY #14 tablet metroNIDAZOLE [Flagyl] 500 mg PO Q12HR 14 Days tab oxyCODONE /ACETAMINOPHEN [Percocet 5/325 mg] 1 tab PO Q6H PRN #14 tablet PRN Reason: Pain, Moderate (4-6)
== END 2017-07-17 13:50 | disposition home or self-care (01) | DRG 176 ==
LOC: ED 22:47 → 4A 07-14 16:44
PROVIDERS: ADMIT Internal Medicine; ATTEND Internal Medicine
DX: I26.99 Other pulmonary embolism without acute cor pulmonale (principal); I10 Essential (primary) hypertension; E78.5 Hyperlipidemia, unspecified; E11.9 Type 2 diabetes mellitus without complications; G43.909 Migraine, unspecified, not intractable, without status migrainosus; N73.9 Female pelvic inflammatory disease, unspecified; Z88.0 Allergy status to penicillin; Z98.51 Tubal ligation status
CPT/HCPCS: 36415; 71275; 76830; 76856; 78452; 80048; 80053; 81001; 82962; 84484; 84703; 85014; 85018; 85025; 85049; 85520; 85610; 85730; 87086; 93005; 93010; 93017; 96374; A9270-GY; A9502; J0295; J1644; J1953; J1956; J2785; J7030; Q9967

== ENCOUNTER 2017-07-28 00:28 | Emergency (ER) | payer BC, OTHER ==
[2017-07-28 01:18] LABS: Basophils % (Auto) 0.4 % (0.0-1.8); Eosinophils # (Auto) 0.2 K/mm3 (0.0-0.4); Eosinophils % (Auto) 3.8 % (0.0-4.3); Hematocrit 37.8 % (30.3-42.9); Hemoglobin 12.7 gm/dl (10.1-14.3); Lymphocytes # (Auto) 1.9 K/mm3 (1.2-5.4); Lymphocytes % (Auto) 31.4 % (13.4-35.0); Mean Corpuscular HGB Conc 34 % (30-34); Mean Corpuscular Hemoglobin 30 pg (28-32); Mean Corpuscular Volume 88 fl (79-97); Monocytes # (Auto) 0.5 K/mm3 (0.0-0.8); Monocytes % (Auto) 7.4 % (0.0-7.3); Platelet Count 328 K/mm3 (140-440); Red Blood Count 4.28 M/mm3 (3.65-5.03); Red Cell Distribution Width 14.7 % (13.2-15.2)
[2017-07-28 01:42] LABS: BUN/Creatinine Ratio 38; Blood Urea Nitrogen 19 mg/dL (7-17); Calcium 9.2 mg/dL (8.4-10.2); Hemolysis Index 6
[2017-07-28 02:04] LABS: HCG Qualitative,Urine Negative (Negative)
--- NOTE | 2017-07-28 02:07 | XRay Report ---
FINAL REPORT EXAM: XR CHEST ROUTINE 2V HISTORY: Shortness of breath TECHNIQUE: PA and lateral views of the chest were submitted. FINDINGS: Heart size mediastinum appear normal. The lungs are clear. Pleural fluid is not seen. The bones and soft tissues do not show any acute changes. IMPRESSION: No active chest disease.
[2017-07-28 02:08] LABS: Bilirubin,Urine NEG (Negative); Blood,Urine NEG (Negative); Color,Urine Yellow (Yellow); Mucus,Urine 3+ /HPF; Nitrite,Urine NEG (Negative); Protein,Urine <15 mg/dL mg/dL (Negative); Urobilinogen,Urine < 2.0 mg/dL (<2.0)
[2017-07-28 02:49] LABS: INR 1.06 (0.87-1.13)
[2017-07-28 11:01] VITALS: BP 107/73
[2017-07-28] MEDS ORDERED: BENADRYL IV ONE (11:05)
[2017-07-28] MEDS ORDERED: REGLAN IV ONE (11:05)
--- NOTE | 2017-07-28 11:05 | Emergency Department Report ---
ED General Adult HPI - General Chief complaint: Chest Pain Stated complaint: CP; SOB Time Seen by Provider: 07/28/17 10:46 Source: patient, RN notes reviewed, old records reviewed Mode of arrival: Ambulatory Limitations: No Limitations - History of Present Illness Initial comments: This is a 26-year-old female who was previously unknown to this provider. Patient has a history of recently diagnosed pulmonary embolus, recently admitted to the hospital for same, also had a stress test. Patient presents to the ER with multiple complaints. The patient's first complaint is headache. The headache is global and throbbing. It is not sudden or thunderclap in nature. It did not reach maximal intensity within an hour. There is no neck pain or neck stiffness, and it is not the worse headache of her life, she reports worse headache previously. Patient next complaints of chest pain. The chest pain is central. The pain does not radiate to the back, arms or neck. There is no vomiting or diaphoresis , there is no significant shortness of breath. Patient endorses compliance with her systemic anticoagulation. The chest pain does not have exacerbating or relieving factors and it does not radiate anywhere. -: Gradual Location: head, chest Radiation: non-radiation Severity scale (0 -10): 6 Quality: aching Consistency: intermittent Improves with: none Worsens with: none Associated Symptoms: chest pain, headaches. denies: confusion, cough, diaphoresis, fever/chills, loss of appetite, malaise, nausea/vomiting, rash, seizure, shortness of breath, syncope, weakness - Related Data Home Medications Medication Instructions Recorded Confirmed Last Taken Atenolol/Chlorthalidone 0.5 tab PO Q12H 07/13/17 07/15/17 Unknown AtorvaSTATin 20 mg PO HS 07/13/17 07/13/17 Unknown Losartan Potassium 25 mg PO Q12H 07/13/17 07/13/17 Unknown metFORMIN 1,000 mg PO Q12H 07/13/17 07/13/17 Unknown Previous Rx's Medication Instructions Recorded Last Taken Type Apixaban [Eliquis] 5 mg PO BID 30 Days tablet 07/17/17 Unknown Rx Apixaban [Eliquis] 10 mg PO Q12HR #14 tablet 07/17/17 Unknown Rx Levofloxacin [Levaquin TAB] 500 mg PO QDAY #14 tablet 07/17/17 Unknown Rx metroNIDAZOLE [Flagyl] 500 mg PO Q12HR 14 Days tab 07/17/17 Unknown Rx oxyCODONE /ACETAMINOPHEN [Percocet 1 tab PO Q6H PRN #14 tablet 07/17/17 Unknown Rx 5/325 mg] Acetaminophen [Tylenol Arthritis] 650 mg PO Q6HR PRN #30 tablet.er 07/28/17 Unknown Rx Allergies Allergy/AdvReac Type Severity Reaction Status Date / Time cefaclor [From [facility]] Allergy Hives Verified 07/14/17 01:32 Penicillins Allergy Itching Verified 07/14/17 01:32 ED Review of Systems ROS: Stated complaint: CP; SOB Other details as noted in HPI ED Past Medical Hx - Past Medical History Previous Medical History?: Yes Hx Hypertension: Yes Hx Diabetes: Yes Hx Headaches / Migraines: Yes Additional medical history: High cholesterol - Surgical History Past Surgical History?: Yes Hx Cholecystectomy: Yes Additional Surgical History: Tonsilectomy, Adenoidectomy, Surgical . Tubal Ligation - Social History Smoking Status: Never Smoker Substance Use Type: None - Medications Home Medications: Home Medications Medication Instructions Recorded Confirmed Last Taken Type Atenolol/Chlorthalidone 0.5 tab PO Q12H 07/13/17 07/15/17 Unknown History AtorvaSTATin 20 mg PO HS 07/13/17 07/13/17 Unknown History Losartan Potassium 25 mg PO Q12H 07/13/17 07/13/17 Unknown History metFORMIN 1,000 mg PO Q12H 07/13/17 07/13/17 Unknown History Apixaban [Eliquis] 5 mg PO BID 30 Days tablet 07/17/17 Unknown Rx Apixaban [Eliquis] 10 mg PO Q12HR #14 tablet 07/17/17 Unknown Rx Levofloxacin [Levaquin TAB] 500 mg PO QDAY #14 tablet 07/17/17 Unknown Rx metroNIDAZOLE [Flagyl] 500 mg PO Q12HR 14 Days tab 07/17/17 Unknown Rx oxyCODONE /ACETAMINOPHEN [Percocet 1 tab PO Q6H PRN #14 tablet 07/17/17 Unknown Rx 5/325 mg] Acetaminophen [Tylenol Arthritis] 650 mg PO Q6HR PRN #30 tablet.er 07/28/17 Unknown Rx ED Physical Exam - General Limitations: No Limitations General appearance: alert, in no apparent distress - Head Head exam: Present: atraumatic, normocephalic - Eye Eye exam: Present: normal appearance, PERRL, EOMI, other (visual acuity intact to finger counting, color perception, reading at a close distance). Absent: nystagmus - ENT ENT exam: Present: normal exam, normal orophraynx, mucous membranes moist, normal external ear exam - Neck Neck exam: Present: normal inspection, full ROM - Respiratory Respiratory exam: Present: normal lung sounds bilaterally. Absent: respiratory distress - Cardiovascular Cardiovascular Exam: Present: regular rate, normal rhythm, normal heart sounds. Absent: systolic murmur, diastolic murmur, rubs, gallop - GI/Abdominal GI/Abdominal exam: Present: soft, normal bowel sounds. Absent: distended, tenderness, guarding, rebound, rigid, pulsatile mass - Extremities Exam Extremities exam: Present: normal inspection, full ROM, normal capillary refill. Absent: tenderness, pedal edema, joint swelling, calf tenderness - Back Exam Back exam: Present: normal inspection, full ROM. Absent: tenderness, CVA tenderness (R), paraspinal tenderness, vertebral tenderness - Neurological Exam Neurological exam: Present: alert, oriented X3, CN II-XII intact, normal gait, other (Extraocular movements intact. Tongue midline. No facial droop. Facial sensation intact to light touch in the V1, V2, V3 distribution bilaterally. 5 and 5 strength in 4 extremities.. Sensation is intact to light touch in 4 extremities.). Absent: motor sensory deficit - Psychiatric Psychiatric exam: Present: normal affect, normal mood - Skin Skin exam: Present: warm, dry, intact, normal color. Absent: rash ED Course Vital Signs 07/28/17 07/28/17 07/28/17 00:50 03:33 10:56 Temperature 98.1 F 97.6 F 98.6 F Pulse Rate 96 H 82 85 Respiratory 18 14 12 Rate Blood Pressure 138/95 129/90 Blood Pressure 107/73 [Right] O2 Sat by Pulse 98 100 Oximetry 07/28/17 07/28/17 12:51 13:28 Temperature 98.6 F Pulse Rate 76 Respiratory 15 14 Rate Blood Pressure Blood Pressure 107/73 [Right] O2 Sat by Pulse 99 Oximetry - Reevaluation(s) Reevaluation #1: 07/28/17 12:41 Patient endorses no lower abdominal pain to me, there is no lower abdominal tenderness, and she denies gynecologic symptoms. There was a concern for pelvic inflammatory disease during her previous hospitalization, the patient can follow up acutely for this. This was specifically recommended by the consulting lead auditor, who also recommended some laboratory studies, which can be done as an outpatient. ED Medical Decision Making - Lab Data Result diagrams: 07/28/17 01:05 07/28/17 01:05 Vital Signs 07/28/17 07/28/17 07/28/17 00:50 03:33 10:56 Temperature 98.1 F 97.6 F 98.6 F Pulse Rate 96 H 82 85 Respiratory 18 14 12 Rate Blood Pressure 138/95 129/90 Blood Pressure 107/73 [Right] O2 Sat by Pulse 98 100 Oximetry Lab Results 07/28/17 07/28/17 07/28/17 Range/Units 01:05 01:05 01:40 WBC 6.1 (4.5-11.0) K/mm3 RBC 4.28 (3.65-5.03) M/mm3 Hgb 12.7 (10.1-14.3) gm/dl Hct 37.8 (30.3-42.9) % MCV 88 (79-97) fl MCH 30 (28-32) pg MCHC 34 (30-34) % RDW 14.7 (13.2-15.2) % Plt Count 328 (140-440) K/mm3 Lymph % (Auto) 31.4 (13.4-35.0) % [place] % (Auto) 7.4 H (0.0-7.3) % Eos % (Auto) 3.8 (0.0-4.3) % Baso % (Auto) 0.4 (0.0-1.8) % Lymph # 1.9 (1.2-5.4) K/mm3 [place] # 0.5 (0.0-0.8) K/mm3 Eos # 0.2 (0.0-0.4) K/mm3 Baso # 0.0 (0.0-0.1) K/mm3 Seg Neutrophils % 57.0 (40.0-70.0) % Seg Neutrophils # 3.5 (1.8-7.7) K/mm3 PT (12.2-14.9) Sec. INR (0.87-1.13) Sodium 141 (137-145) mmol/L Potassium 4.0 (3.6-5.0) mmol/L Chloride 103.2 (98-107) mmol/L Carbon Dioxide 27 (22-30) mmol/L Anion Gap 15 mmol/L BUN 19 H (7-17) mg/dL Creatinine 0.5 L (0.7-1.2) mg/dL Estimated GFR > 60 ml/min BUN/Creatinine Ratio 38 % Glucose 99 (65-100) mg/dL Calcium 9.2 (8.4-10.2) mg/dL Troponin T < 0.010 (0.00-0.029) ng/mL Urine Color Yellow (Yellow) Urine Turbidity Clear (Clear) Urine pH 5.0 (5.0-7.0) Ur Specific Golf 1.028 (1.003-1.030) Urine Protein <15 mg/dl (Negative) mg/dL Urine Glucose (UA) Neg (Negative) mg/dL Urine Ketones Neg (Negative) mg/dL Urine Blood Neg (Negative) Urine Nitrite Neg (Negative) Ur Reducing Substances Not Reportable Urine Bilirubin Neg (Negative) Urine Ictotest Not Reportable Urine Urobilinogen < 2.0 (<2.0) mg/dL Ur Leukocyte Esterase Sm (Negative) Urine WBC (Auto) 3.0 (0.0-6.0) /HPF Urine RBC (Auto) 4.0 (0.0-6.0) /HPF U Epithel Cells (Auto) 7.0 (0-13.0) /HPF Urine Mucus 3+ /HPF Urine HCG, Qual Negative (Negative) 07/28/17 07/28/17 07/28/17 Range/Units 02:05 03:56 11:00 WBC (4.5-11.0) K/mm3 RBC (3.65-5.03) M/mm3 Hgb (10.1-14.3) gm/dl Hct (30.3-42.9) % MCV (79-97) fl MCH (28-32) pg MCHC (30-34) % RDW (13.2-15.2) % Plt Count (140-440) K/mm3 Lymph % (Auto) (13.4-35.0) % [place] % (Auto) (0.0-7.3) % Eos % (Auto) (0.0-4.3) % Baso % (Auto) (0.0-1.8) % Lymph # (1.2-5.4) K/mm3 [place] # (0.0-0.8) K/mm3 Eos # (0.0-0.4) K/mm3 Baso # (0.0-0.1) K/mm3 Seg Neutrophils % (40.0-70.0) % Seg Neutrophils # (1.8-7.7) K/mm3 PT 14.4 (12.2-14.9) Sec. INR 1.06 (0.87-1.13) Sodium (137-145) mmol/L Potassium (3.6-5.0) mmol/L Chloride (98-107) mmol/L Carbon Dioxide (22-30) mmol/L Anion Gap mmol/L BUN (7-17) mg/dL Creatinine (0.7-1.2) mg/dL Estimated GFR ml/min BUN/Creatinine Ratio % Glucose (65-100) mg/dL Calcium (8.4-10.2) mg/dL Troponin T < 0.010 < 0.010 (0.00-0.029) ng/mL Urine Color (Yellow) Urine Turbidity (Clear) Urine pH (5.0-7.0) Ur Specific Golf (1.003-1.030) Urine Protein (Negative) mg/dL Urine Glucose (UA) (Negative) mg/dL Urine Ketones (Negative) mg/dL Urine Blood (Negative) Urine Nitrite (Negative) Ur Reducing Substances Urine Bilirubin (Negative) Urine Ictotest Urine Urobilinogen (<2.0) mg/dL Ur Leukocyte Esterase (Negative) Urine WBC (Auto) (0.0-6.0) /HPF Urine RBC (Auto) (0.0-6.0) /HPF U Epithel Cells (Auto) (0-13.0) /HPF Urine Mucus /HPF Urine HCG, Qual (Negative) - EKG Data -: EKG Interpreted by Nm - Radiology Data Radiology results: report reviewed, image reviewed Noncontrast CT scan of the brain: Negative for acute disease X-ray of the chest: Negative for acute disease Nuclear stress test from July 2017: Normal, no perfusion abnormality CT scan of the chest from 07/14/2017: Positive study for pulmonary embolus with small burden of clot. - Medical Decision Making Differential diagnosis, including not limited to: Migraine headache, tension headache, cluster headache, pneumonia, acute coronary syndrome, recurrent pulmonary and was, intracranial hemorrhage Assessment and plan: 26-year-old female with 2 complaints. Patient's headache is not the worse headache of her life, it did not reach maximal intensity within an hour, and he does not summon or thunderclap in nature. She walks with a steady gait, has a normal neurologic examination, has a GCS of 15, with an anion score of 0, patient clinically sober with no positive physical exam findings. Noncontrast CT scan of the brain is negative for spontaneous intracranial hemorrhage, patient noted to be plan a cellular phone, and in no distress. Headache currently sounds benign, patient can take acetaminophen for her headache and follow up for an outpatient primary care doctor. Patient also endorses chest pain. Objectively speaking troponin negative 3, patient has been compliant with her systemic anticoagulation, eliquis; with the exception of missing 1 dose after her chest pain started. Her chest pain has been present for days. Her EKG is unremarkable 2, and patient had a CAT scan of her chest within the past month that demonstrated a very small subsegmental pulmonary embolus. Patient's had no episodes of tachycardia or hypoxia while here in the ER and appears quite comfortable, therefore I think worsened clot burden or additional pulmonary embolus is very unlikely. Patient is encouraged to remain compliant with her outpatient anticoagulation, and she can follow-up with an outpatient primary care doctor. She'll be discharged at this time, return precautions are reviewed. Critical care attestation.: If time is entered above; I have spent that time in minutes in the direct care of this critically ill patient, excluding procedure time. ED Disposition Clinical Impression: Chest pain in adult, Headache Disposition: [id number] TO HOME OR SELFCARE Is pt being admited?: No Does the pt Need Aspirin: No Condition: Stable Instructions: Chest Pain (ED) Additional Instructions: Take the Tylenol medication as needed for pain. If taking this medication, do not combine with Percocet. Follow up with an outpatient FIGURE CLERK doctor within the next month. Dr. Luna is a local FIGURE CLERK doctor. Follow-up with an outpatient primary care doctor or astronomy instructor within the next [address] Rajat Teresa is a local primary care doctor, and Dr. Garrison Garrido is a local foot specialist. Return to the ER right away with new pain, worsened pain, migration of pain, fevers, chills, lethargy, irritability, projectile vomiting, change in mental status, confusion, inability to tolerate liquid feeds. Please note that it is very important to take your blood thinning medication as directed, and not taking her medication could result in worsening blood clot, which in turn can cause disability, , paralysis, cardiac arrest. Prescriptions: Acetaminophen [Tylenol Arthritis] 650 mg PO Q6HR PRN #30 tablet.er PRN Reason: Pain Referrals: ALEJANDRO DAVIS MD [Primary Care Provider] - 3-5 Days FRANKY FRAZIER MD [Staff Physician] - 3-5 Days ASHLEY LUNA MD [Staff Physician] - 3-5 Days
--- NOTE | 2017-07-28 11:32 | Cat Scan Report ---
CT scan of head without IV contrast: History: Headaches. Findings: Ventricles are normal in size and midline in location. No evidence of acute H. Allie, hemorrhage or mass. No extra-axial fluid collection. Normal brainstem and cerebellum. Normal sinuses and master air cells. Impression No acute intracranial abnormality.
--- NOTE | 2017-07-28 11:55 | XRay Report ---
Chest 2 views: Compared to 07/28/17. History: Chest pain. Findings: Normal cardiomediastinal silhouette. Trachea is midline. No consolidation, pneumothorax or pleural effusion. Impression: No acute cardiopulmonary findings
== END 2017-07-28 13:28 | disposition home or self-care (01) ==
LOC: ED 00:28
DX: G43.909 Migraine, unspecified, not intractable, without status migrainosus (principal); R07.89 Other chest pain; I10 Essential (primary) hypertension; E11.9 Type 2 diabetes mellitus without complications; E78.00 Pure hypercholesterolemia, unspecified; Z88.0 Allergy status to penicillin; Z88.8 Allergy status to other drugs, medicaments and biological substances
CPT/HCPCS: 36415; 70450; 71020; 80048; 81001; 81025; 84484; 85025; 85610; 93005; 93010; 96374; 96375; 99285; J1200; J2765

== ENCOUNTER 2017-09-10 08:47 | Outpatient (CLI) | payer BC ==
[2017-09-10 09:18] LABS: Blood Urea Nitrogen 18 mg/dL (7-17)
--- NOTE | 2017-09-10 10:44 | Cat Scan Report ---
CTA CHEST: HISTORY: Pulmonary emboli. COMPARISON: 07/14/17. TECHNIQUE: Helical CT in 1.25mm intervals following IV contrast. Pulmonary embolus protocol. Sagittal and coronal reformatted images. Rotational MIP images. FINDINGS: Contrast bolus is satisfactory. No pulmonary embolus is identified. Thyroid gland: Normal. Tracheobronchial tree: Normal. Esophagus: Normal. Heart: Normal. Pericardium: Normal. Mediastinum: Normal. Lung Beltran: normal. Pleural Spaces: Normal. Musculoskeletal: Normal. IMPRESSION: No evidence for pulmonary embolus. The questionable small pulmonary embolus at the left lung base noted on 07/14/17 is not identified on today's exam. Unremarkable CT chest with contrast.
== END 2017-09-10 08:48 | disposition home or self-care (01) ==
LOC: CT 08:47
PROVIDERS: ATTEND Specialist
DX: I26.99 Other pulmonary embolism without acute cor pulmonale (principal)
CPT/HCPCS: 36415; 71275; 82565; 84520; Q9967